=== PATIENT | female | born 1930 | race Hispanic/Latino ===

== ENCOUNTER 2017-02-21 10:45 | Emergency (ER) | payer MEDICARE, OTHER ==
[2017-02-21 10:46] VITALS: BMI 30.9
[2017-02-21 11:23] VITALS: RESP 18; TEMP 98.2
--- NOTE | 2017-02-21 11:49 | ED PDOC ---
Arrival/HPI - General Chief Complaint: Female Genitourinary Time Seen by Provider: 02/21/17 10:47 Historian: Patient - History of Present Illness Narrative History of Present Illness (Text): 02/21/17 11:35 A 86 year old female, whose past medical history includes COPD and multiple UTI' s, presents to the emergency department complaining of chills and blood in the urine. Patient reports last night she developed urinary frequency and chills. This morning upon waking she noticed blood in her urine. She denies any fever, abdominal pain, nausea, vomiting, diarrhea, or any other complaints at this time. Patient mentions in the past went she has had similar symptoms she was diagnosed with UTI. PMD: Dr. Mesa Time/Duration: Other (10-18 hours) Symptom Onset: Sudden Symptom Course: Unchanged Quality: Other Activities at Onset: Rest Context: Home Past Medical History - Provider Review Nursing Documentation Reviewed: Yes - Infectious Disease Hx of Infectious Diseases: None - Tetanus Immunization Tetanus Immunization: Unknown - Reproductive Menopause: Yes - Cardiac Hx Cardiac Disorders: Yes Hx Hypertension: Yes - Pulmonary Hx Respiratory Disorders: Yes Hx Chronic Obstructive Pulmonary Disease (COPD): Yes - Neurological Hx Neurological Disorder: No - HEENT Hx HEENT Disorder: Yes (glasses) Hx Deafness: (hearing loss) - Renal Hx Renal Disorder: No - Endocrine/Metabolic Hx Endocrine Disorders: No Hx Diabetes Mellitus Type 2: (borderline) - Hematological/Oncological Hx Blood Disorders: Yes Hx Shingles: Yes - Integumentary Hx Dermatological Disorder: Yes Other/Comment: 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 - Musculoskeletal/Rheumatological Hx Musculoskeletal Disorders: Yes Hx Arthritis: Yes - Gastrointestinal Hx Gastrointestinal Disorders: No - Genitourinary/Gynecological Hx Genitourinary Disorders: No - Psychiatric Hx Psychophysiologic Disorder: No Hx Substance Use: No - Past Surgical History Past Surgical History: Unable to Obtain - Surgical History Hx Thyroidectomy: Yes Hx Tonsillectomy: Yes - Anesthesia Hx Anesthesia: Yes Hx Anesthesia Reactions: No Hx Malignant Hyperthermia: No - Suicidal Assessment Feels Threatened In Home Enviroment: No Family/Social History - Physician Review Nursing Documentation Reviewed: Yes Family/Social History: Unknown Family HX Smoking Status: Former Smoker Hx Alcohol Use: Yes Hx Substance Use: No Hx Substance Use Treatment: No Allergies/Home Meds Allergies/Adverse Reactions: Allergies ampicillin Allergy (Verified 05/02/16 08:17) RASH esomeprazole magnesium [From Nexium] Allergy (Verified 05/02/16 08:17) RASH Home Medications: Home Meds Medication Instructions Recorded Confirmed Albuterol Sulfate [Proair Hfa] 2 puff IH BID 04/04/13 08/22/16 Aspirin [Ecotrin] 81 mg PO DAILY 04/04/13 08/22/16 Ezetimibe [Zetia] 10 mg PO DAILY 04/04/13 08/22/16 Levothyroxine Sodium 0.1 mg PO DAILY 04/04/13 08/22/16 [Levothyroxine] Omeprazole 20 mg PO DAILY 04/04/13 08/22/16 Irbesartan [Avapro] 300 mg PO DAILY 02/18/16 08/22/16 Metoprolol Succinate XL [Toprol XL] 50 mg PO DAILY 02/18/16 08/22/16 Fluticasone Propionate [Flovent 0.22 mg IH BID 08/22/16 08/22/16 Hfa] Tiotropium [Spiriva] 18 mcg IH DAILY 08/22/16 08/22/16 Review of Systems - Physician Review All systems were reviewed & negative as marked: Yes - Review of Systems Constitutional: Other (chills). absent: Fevers Gastrointestinal: absent: Abdominal Pain, Diarrhea, Nausea, Vomiting Genitourinary Female: Frequency, Hematuria Physical Exam Vital Signs Reviewed: Yes Vital Signs Temp Pulse Resp BP Pulse Ox 02/21/17 14:28 68 18 182/73 H 98 02/21/17 12:49 64 18 182/76 H 98 02/21/17 11:17 98.2 F 66 18 187/79 H 97 Temperature: Afebrile Blood Pressure: Hypertensive Pulse: Regular Respiratory Rate: Normal Appearance: Positive for: Well-Appearing, Non-Toxic, Comfortable Pain Distress: None Mental Status: Positive for: Alert and Oriented X 3 - Systems Exam Head: Present: Atraumatic, Normocephalic Pupils: Present: PERRL Extroacular Muscles: Present: EOMI Conjunctiva: Present: Normal Mouth: Present: Moist Mucous Membranes Neck: Present: Normal Range of Motion Respiratory/Chest: Present: Clear to Auscultation, Good Air Exchange. No: Respiratory Distress, Accessory Muscle Use Cardiovascular: Present: Regular Rate and Rhythm, Normal S1, S2. No: Murmurs Abdomen: Present: Normal Bowel Sounds. No: Tenderness, Distention, Peritoneal Signs Back: Present: Normal Inspection Upper Extremity: Present: Normal Inspection. No: Cyanosis, Edema Lower Extremity: Present: Normal Inspection. No: Edema Neurological: Present: GCS=15, CN II-XII Intact, Speech Normal Skin: Present: Warm, Dry, Normal Color. No: Rashes Psychiatric: Present: Alert, Oriented x 3, Normal Insight, Normal Concentration Medical Decision Making ED Course and Treatment: 02/21/17 11:35 Impression: A 86 year old female with hematuria. Differential Diagnosis include but are not limited to: UTI Plan: -- Labs -- Urinalysis -- Reassess and disposition Prior Visits: Notes and results from previous visits were reviewed. The patient last presented to the emergency department on 08/22/16 for evlaution of diarrhea. Progress Notes: 02/21/17 14:12 Abdomen/Pelvis CT: Creator : Demetrius Rizzo MD COMPARISON: 08/31/2016 FINDINGS: LOWER THORAX: Nodular scarring is seen at the right lung base. This is unchanged. There is a moderate size hiatal hernia LIVER: Unremarkable. No gross lesion or ductal dilatation. GALLBLADDER AND BILE DUCTS: There is a stone in the gallbladder PANCREAS: Unremarkable. No gross lesion or ductal dilatation. SPLEEN: Unremarkable. ADRENALS: Unremarkable. No mass. KIDNEYS AND URETERS: Unremarkable. No hydronephrosis. No solid mass. VASCULATURE: Unremarkable. No aortic aneurysm. BOWEL: Unremarkable. No obstruction. No gross mural thickening. There is diverticulosis of the sigmoid colon without diverticulitis APPENDIX: Unremarkable. Normal appendix. PERITONEUM: Unremarkable. No free fluid. No free air. LYMPH NODES: Unremarkable. No enlarged lymph nodes. BLADDER: Unremarkable. REPRODUCTIVE: Unremarkable. BONES: No acute fracture. OTHER FINDINGS: None. IMPRESSION: No acute findings 02/21/17 14:[address] patel, requests ct. ct neg. case discussed with dr mesa. stable for outpt managment. no e/o of sepsis stone. dr patel requests iv antibiotics. requests pt to follow up in his office for cysto. return precautions advsied. updated pt, states feels well to go home. abd soft no ttp. 02/21/17 15:47 - Lab Interpretations Lab Results: 02/21/17 11:50 02/21/17 11:50 Lab Results 02/21/17 11:50: WBC 9.4 D, RBC 4.44, Hgb 12.3, Hct 37.0, MCV 83.3, MCH 27.7, MCHC 33.2, RDW 14.2, Plt Count 266, MPV 9.8, Gran % 79.7 H, Lymph % (Auto) 11.6 L, [place] % (Auto) 6.9 H, Eos % (Auto) 1.5, Baso % (Auto) 0.3, Gran # 7.51 H, Lymph # 1.1 L, [place] # 0.7 H, Eos # 0.1, Baso # 0.03, PT 10.7, INR 0.99, APTT 25.8, Sodium 131 L, Potassium 4.5, Chloride 95 L, Carbon Dioxide 27, Anion Gap 14, BUN 26 H, Creatinine 1.1, Est GFR ( Amer) 57, Est GFR (Non-Af Amer) 47, Random Glucose 112 H, Calcium 8.9, Total Bilirubin 0.7, AST 20, ALT 32, Alkaline Phosphatase 63, Total Protein 7.1, Albumin 3.8, Globulin 3.4, Albumin/ Globulin Ratio 1.1, Lipase 131, Urine Color Red, Urine Appearance Bloody, Urine pH 6.5, Ur Specific [place] 1.020, Urine Protein >=300 H, Urine Glucose (UA) Negative, Urine Ketones Negative, Urine Blood Large H, Urine Nitrate Negative, Urine Bilirubin Negative, Urine Urobilinogen 0.2, Ur Leukocyte Esterase Trace H , Urine RBC Tntc, Urine WBC 0 - 2, Ur Epithelial Cells 0 - 2, Urine Bacteria Mod I have reviewed the lab results: Yes - RAD Interpretation Radiology Orders: 02/21/17 12:56 ABD & PELVIS W/O PO OR IV CONT [CT] Stat - Medication Orders Current Medication Orders: Discontinued Medications Ciprofloxacin (Cipro 400mg/200ml Dsw) 200 mls @ 133.3 mls/hr IVPB STAT STA PRN Reason: Protocol Stop: 02/21/17 14:27 Last Admin: 02/21/17 13:15 Dose: 133.3 MLS/HR eMAR Start Stop Document 02/21/17 13:15 GMD (Rec: 02/21/17 13:16 GMD [facility] [id number] Intravenous Solution Start Date 02/21/17 Start Time 13:15 End Date 02/21/17 End time 14:46 Total Infusion Time 91 - Scribe Statement The provider has reviewed the documentation as recorded by the Heather España Provider Heather Attestation: All medical record entries made by the Scribailyn were at my direction and personally dictated by me. I have reviewed the chart and agree that the record accurately reflects my personal performance of the history, physical exam, medical decision making, and the department course for this patient. I have also personally directed, reviewed, and agree with the discharge instructions and disposition. Disposition/Present on Arrival - Present on Arrival Any Indicators Present on Arrival: No History of DVT/PE: No History of Uncontrolled Diabetes: No Urinary Catheter: No History of Decub. Ulcer: No History Surgical Site Infection Following: None - Disposition Have Diagnosis and Disposition been Completed?: Yes Diagnosis: Hematuria Disposition: HOME/ ROUTINE Disposition Time: 14:47 Condition: STABLE Discharge Instructions (ExitCare): Acute Hematuria (ED), Urinary Tract Infection in Women (ED) Additional Instructions: please follow up with dr patel and dr mesa. return to er with worsening symptoms or concerns. Prescriptions: Ciprofloxacin [Cipro] 500 mg PO BID #14 tab
[2017-02-21 11:58] LABS: ADD MANUAL DIFF? NO
[2017-02-21 12:08] LABS: BASO # 0.03 K/mm3 (0.0-2.0); BASO % 0.3 % (0.0-3.0); EOS # 0.1 (0.0-0.7); EOS % 1.5 % (1.5-5.0); GRAN # 7.51 (1.4-6.5); GRAN % 79.7 % (50.0-68.0); LYMPH # 1.1 (1.2-3.4); LYMPH % 11.6 % (22.0-35.0); MEAN CELL VOLUME 83.3 fL (80.0-105.0); MEAN CORPUSCULAR HEMOGLOBIN 27.7 pg (25.0-35.0); MEAN CORPUSCULAR HGB CONC 33.2 g/dl (31.0-37.0); MEAN PLATELET VOLUME 9.8 fl (7.0-11.0); MONO # 0.7 (0.1-0.6); MONO % 6.9 % (1.0-6.0); PLATELET COUNT 266 10^3/uL (120.0-450.0); RED CELL DISTRIBUTION WIDTH 14.2 % (11.5-14.5); WHITE BLOOD COUNT 9.4 10^3/ul (4.5-11.0)
[2017-02-21 12:16] LABS: ALB/GLOB RATIO 1.1 (1.1-1.8); BILIRUBIN,TOTAL 0.7 mg/dL (0.2-1.3); CALCIUM 8.9 mg/dL (8.4-10.5); POTASSIUM 4.5 mmol/L (3.6-5.0); TOTAL PROTEIN 7.1 g/dL (5.8-8.3)
[2017-02-21 12:20] LABS: INR 0.99 (0.93-1.08); PARTIAL THROMBOPLASTIN TIME 25.8 Seconds (23.7-30.8)
[2017-02-21 12:24] LABS: PH,URINE 6.5 (4.7-8.0); URINE BILIRUBIN NEGATIVE (NEGATIVE); URINE BLOOD LARGE (NEGATIVE); URINE GLUCOSE (UA) NEGATIVE (NEGATIVE); URINE KETONE NEGATIVE (NEGATIVE); URINE LEUKOCYTE ESTERASE TRACE Leu/uL (NEGATIVE); URINE PROTEIN >=300 mg/dL (<30 mg/dL); URINE UROBILINOGEN 0.2 E.U./dL (<1 E.U./dL)
[2017-02-21 12:28] LABS: URINE APPEARANCE BLOODY (CLEAR); URINE COLOR RED (YELLOW)
[2017-02-21 12:40] LABS: URINE RBC TNTC /hpf (0-2)
[2017-02-21 12:42] LABS: URINE WBC 0 - 2 /hpf (0-6)
[2017-02-21 12:43] LABS: URINE BACTERIA MOD (NEG); URINE EPITHELIAL CELLS 0 - 2 /hpf (0-5)
[2017-02-21 12:50] VITALS: O2SAT 98
[2017-02-21] MEDS ORDERED: Ciprofloxacin 400mg/200ml D5W 200 ML IVPB STA (12:57)
[2017-02-21 14:29] VITALS: BP 182/73; PULSE 68
--- NOTE | 2017-02-21 14:43 | CT ---
PROCEDURE: CT Abdomen and Pelvis without intravenous contrast HISTORY: abd pain, flank pain COMPARISON: 08/31/2016 TECHNIQUE: Without contrast. Contrast Dose: Radiation dose: Total exam DLP = 819 mGy-cm. This CT exam was performed using one or more of the following dose reduction techniques: Automated exposure control, adjustment of the mA and/or kV according to patient size, and/or use of iterative reconstruction technique. FINDINGS: LOWER THORAX: Nodular scarring is seen at the right lung base. This is unchanged. There is a moderate size hiatal hernia LIVER: Unremarkable. No gross lesion or ductal dilatation. GALLBLADDER AND BILE DUCTS: There is a stone in the gallbladder PANCREAS: Unremarkable. No gross lesion or ductal dilatation. SPLEEN: Unremarkable. ADRENALS: Unremarkable. No mass. KIDNEYS AND URETERS: Unremarkable. No hydronephrosis. No solid mass. VASCULATURE: Unremarkable. No aortic aneurysm. BOWEL: Unremarkable. No obstruction. No gross mural thickening. There is diverticulosis of the sigmoid colon without diverticulitis APPENDIX: Unremarkable. Normal appendix. PERITONEUM: Unremarkable. No free fluid. No free air. LYMPH NODES: Unremarkable. No enlarged lymph nodes. BLADDER: Unremarkable. REPRODUCTIVE: Unremarkable. BONES: No acute fracture. OTHER FINDINGS: None. IMPRESSION: No acute findings
== END 2017-02-21 15:34 | disposition home or self-care (01) ==
LOC: ED 10:45
DX: R31.9 Hematuria, unspecified (principal); I10 Essential (primary) hypertension; Z87.891 Personal history of nicotine dependence
CPT/HCPCS: 74176; 80053; 81001; 83690; 85025; 85610; 85730; 87086; 96365; 96366; 99284; J0744

== ENCOUNTER 2018-05-09 13:56 | Emergency (ER) | payer MEDICARE, OTHER ==
[2018-05-09 13:57] VITALS: BMI 30.9
[2018-05-09 14:26] VITALS: RESP 19
--- NOTE | 2018-05-09 14:30 | ED PDOC ---
Arrival/HPI - General Historian: Patient - History of Present Illness Time/Duration: 4-6 hours Symptom Onset: Sudden Symptom Course: Unchanged Quality: Pressure <Ross Burciaga - Last Filed: 05/09/18 15:21> <Eliel Vaughan - Last Filed: 05/09/18 17:43> - General Chief Complaint: Female Genitourinary Time Seen by Provider: 05/09/18 13:57 - History of Present Illness Narrative History of Present Illness (Text): 05/09/18 14:24 Pt is an 87 yo F with PMH of CAD, hypothyroidism, asthma, recurrent UTI, and CVA presents to ED due to bladder pressure this AM. Patient states that she felt pressure in her bladder several times this morning. She was concerned about a possible UTI because past UTI's felt similar. Patient states that she has had an indwelling rios catheter since December due to urinary incontinence 2/2 CVA. She states that the catheter is changed monthly. Patient states the most recent UTI was a few months ago and and required IV antibiotics with subsequent PO antibiotics that were discontinued recently. The catheter was last changed 3 days ago. Of note, patient daily urine output is 700-900 cc, however today her UO was 1350 over 12 hrs. Family at bedside states she has not been acutely confused, which was the case with the last UTI. Patient denies CP, SOB, n/v/d, abdominal pain, fever, chills, RIZO, dizziness, dysuria, hematuria, or any other complaints. PMD: Moshe (Ross Burciaga) Past Medical History - Provider Review Nursing Documentation Reviewed: Yes - Infectious Disease Hx of Infectious Diseases: None - Tetanus Immunization Tetanus Immunization: Unknown - Reproductive Menopause: Yes - Cardiac Hx Cardiac Disorders: Yes Hx Hypertension: Yes - Pulmonary Hx Respiratory Disorders: Yes Hx Chronic Obstructive Pulmonary Disease (COPD): Yes - Neurological Hx Neurological Disorder: No - HEENT Hx HEENT Disorder: Yes (glasses) Hx Deafness: (hearing loss) - Renal Hx Renal Disorder: No - Endocrine/Metabolic Hx Endocrine Disorders: No Hx Diabetes Mellitus Type 2: (borderline) - Hematological/Oncological Hx Blood Disorders: Yes Hx Shingles: Yes - Integumentary Hx Dermatological Disorder: Yes Other/Comment: 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 - Musculoskeletal/Rheumatological Hx Musculoskeletal Disorders: Yes Hx Arthritis: Yes - Gastrointestinal Hx Gastrointestinal Disorders: No - Genitourinary/Gynecological Hx Genitourinary Disorders: No - Psychiatric Hx Psychophysiologic Disorder: No Hx Substance Use: No - Past Surgical History Past Surgical History: Unable to Obtain - Surgical History Hx Thyroidectomy: Yes Hx Tonsillectomy: Yes - Anesthesia Hx Anesthesia: Yes Hx Anesthesia Reactions: No Hx Malignant Hyperthermia: No - Suicidal Assessment Feels Threatened In Home Enviroment: No <Ross Burciaga - Last Filed: 05/09/18 15:21> - Travel History Have you recently traveled outside [place] w/in the past 3 mons?: No - Past History Past History: No Previous - Reproductive Currently : No <Eliel Vaughan - Last Filed: 05/09/18 17:43> Family/Social History - Physician Review Nursing Documentation Reviewed: Yes Family/Social History: No Known Family HX Smoking Status: Former Smoker Hx Alcohol Use: Yes Hx Substance Use: No Hx Substance Use Treatment: No <Ross Burciaga - Last Filed: 05/09/18 15:21> Allergies/Home Meds <Ross Burciaga - Last Filed: 05/09/18 15:21> <Eliel Vaughan - Last Filed: 05/09/18 17:43> Allergies/Adverse Reactions: Allergies ampicillin Allergy (Verified 05/02/16 08:17) RASH esomeprazole magnesium [From Nexium] Allergy (Verified 05/02/16 08:17) RASH Home Medications: Home Meds Medication Instructions Recorded Confirmed Irbesartan [Avapro] 300 mg PO DAILY 02/18/16 05/09/18 Metoprolol Succinate XL [Toprol XL] 50 mg PO DAILY 02/18/16 05/09/18 Fluticasone Propionate [Flovent 0.22 mg IH BID 08/22/16 05/09/18 Hfa] Tiotropium [Spiriva] 18 mcg IH DAILY 08/22/16 05/09/18 Apixaban [Eliquis] 2.5 mg PO BID 05/09/18 05/09/18 Levothyroxine [Synthroid] 25 mcg PO DAILY 05/09/18 05/09/18 Lisinopril [Zestril] 10 mg PO DAILY 05/09/18 05/09/18 Omeprazole [Omeprazole] 40 mg PO DAILY 05/09/18 05/09/18 Pravastatin Sodium [Pravachol] 40 mg PO DAILY 05/09/18 05/09/18 amLODIPine [Norvasc] 5 mg PO DAILY 05/09/18 05/09/18 Review of Systems - Review of Systems Constitutional: Normal Eyes: Normal ENT: Normal Respiratory: Normal Cardiovascular: Normal Gastrointestinal: Normal Genitourinary Female: Other (suprapubic pressure) Musculoskeletal: Normal Skin: Normal Neurological: Normal Endocrine: Normal Hemo/Lymphatic: Normal Psychiatric: Normal <PatricaRoss Last Filed: 05/09/18 15:21> Physical Exam Temperature: Afebrile Blood Pressure: Normal Pulse: Regular Respiratory Rate: Normal Appearance: Positive for: Non-Toxic Pain Distress: None Mental Status: Positive for: Alert and Oriented X 3 - Systems Exam Head: Present: Atraumatic, Normocephalic Pupils: Present: PERRL Extroacular Muscles: Present: EOMI Conjunctiva: Present: Normal Mouth: Present: Moist Mucous Membranes Neck: Present: Normal Range of Motion Respiratory/Chest: Present: Clear to Auscultation, Good Air Exchange. No: Respiratory Distress, Accessory Muscle Use Cardiovascular: Present: Regular Rate and Rhythm, Normal S1, S2. No: Murmurs Abdomen: Present: Other (suprapubic pressure). No: Tenderness, Distention, Peritoneal Signs Genitourinary/Pelvic Exam: Present: Other (Urine per rios is light yellow, no signs of pyuria, hematuria) Back: Present: Normal Inspection Upper Extremity: Present: Normal Inspection. No: Cyanosis, Edema Lower Extremity: Present: Normal Inspection. No: Edema Neurological: Present: GCS=15, CN II-XII Intact, Speech Normal Skin: Present: Warm, Dry, Normal Color. No: Rashes Psychiatric: Present: Alert, Oriented x 3, Normal Insight, Normal Concentration <Ross Burciaga Last Filed: 05/09/18 15:21> Vital Signs Temp Pulse Resp BP Pulse Ox 05/09/18 17:15 98 F 05/09/18 15:19 64 19 132/75 98 05/09/18 14:02 97.7 F 67 19 137/98 H 99 Medical Decision Making <PatricaRoss Last Filed: 05/09/18 15:21> Re-evaluation Time: 16:30 Reassessment Condition: Improved - Lab Interpretations I have reviewed the lab results: Yes Interpretation: Abnormal lab values (+ abnl UA) <Eliel Vaughan - Last Filed: 05/09/18 17:43> ED Course and Treatment: 05/09/18 14:31 87 yo F presents to ED with suprapubic pressure concerning for UTI vs bladder spasms. Plan: - CBC, CMP - Coags - VBG shock - UA - Reassess and disposition 05/09/18 15:17 Dr. Mesa made aware of patient status, will follow up when work up is complete. 05/09/18 15:[address] Modi, who will send sensitivities from last urine culture. He recommends rios irrigation. (Ross Burciaga) Patient Seen With Resident: In agreement with resident note which contains more details about the patient. Patient was seen and evaluated with resident. Came up with plan and treatment together I performed the hx and physical exam of the patient and discussed their mgt with the RESIDENT. I reviewed the RESIDENT's NOTE and agree with the assessment and plan of care. pt is well appearing pt is not in any distress pt is comfortable vital signs WNL will recommend pt for IV abx and continue monitor [address] Mesa on multiple occasions, is aware of emergency department mgt/txt/plan; agrees with ABX, will continue to monitor patient as she is recommended for outpt txt/follow-up - Dr Mesa agrees 1700 pt/family are made aware of pt's medical results pt is encouraged fluids pt is encouraged outpt follow up with Dr Mesa/Dr Modi pt will be discharged home (Eliel Vaughan) - Lab Interpretations Lab Results: 05/09/18 14:50 05/09/18 14:50 Lab Results 05/09/18 15:15: Urine Color Yellow, Urine Appearance Cloudy, Urine pH 6.0, Ur Specific [place] 1.020, Urine Protein 30 H, Urine Glucose (UA) Negative, Urine Ketones Negative, Urine Blood Large H, Urine Nitrate Negative, Urine Bilirubin Negative, Urine Urobilinogen 0.2, Ur Leukocyte Esterase Large H, Urine RBC 10 - 15, Urine WBC 20 - 25, Ur Epithelial Cells 10 - 12, Urine Bacteria Mod 05/09/18 14:50: pO2 41, VBG pH 7.36, VBG pCO2 47.0, VBG HCO3 26.6, VBG Total CO2 28.0, VBG O2 Sat (Calc) 78.5 H, VBG Base Excess 0.6, VBG Potassium 4.2, Sodium 136.0, Chloride 103.0, Glucose 107 H, Lactate 1.0, FiO2 21.0, Venous Blood Potassium 4.2 05/09/18 14:50: PT 16.7 H, INR 1.45 H, APTT 27.9 05/09/18 14:50: Sodium 139, Chloride 101, Potassium 4.2, Carbon Dioxide 27, Anion Gap 16, BUN 25 H, Creatinine 1.0, Est GFR ( Amer) > 60, Est GFR ( Non-Af Amer) 52, Random Glucose 107, Calcium 9.5, Total Bilirubin 0.5, AST 27, ALT 35, Alkaline Phosphatase 56, Total Protein 6.8, Albumin 3.7, Globulin 3.1, Albumin/Globulin Ratio 1.2 05/09/18 14:50: WBC 8.0 D, RBC 3.94, Hgb 11.1 L, Hct 33.7 L, MCV 85.5, MCH 28.2 , MCHC 32.9, RDW 15.4 H, Plt Count 320, MPV 10.0, Gran % 79.6 H, Lymph % (Auto) 11.8 L, [place] % (Auto) 6.0, Eos % (Auto) 2.3, Baso % (Auto) 0.3, Gran # 6.33, Lymph # (Auto) 0.9 L, [place] # (Auto) 0.5, Eos # (Auto) 0.2, Baso # (Auto) 0.02 - Medication Orders Current Medication Orders: Discontinued Medications Levofloxacin/Dextrose (Levaquin 750mg) 750 mg in 150 mls @ 100 mls/hr IVPB STAT STA PRN Reason: Protocol Stop: 05/09/18 16:30 Last Admin: 05/09/18 15:59 Dose: 100 mls/hr Disposition/Present on Arrival - Present on Arrival History of DVT/PE: No History of Uncontrolled Diabetes: No Urinary Catheter: No History of Decub. Ulcer: No History Surgical Site Infection Following: None <Ross Burciaga - Last Filed: 05/09/18 15:21> - Present on Arrival Any Indicators Present on Arrival: No - Disposition Have Diagnosis and Disposition been Completed?: Yes Disposition Time: 17:30 Patient Plan: Discharge <Eliel Vaughan - Last Filed: 05/09/18 17:43> - Disposition Diagnosis: UTI (urinary tract infection), General medical exam Disposition: HOME/ ROUTINE Patient Problems: Current Active Problems Problem Status Onset UTI (urinary tract infection) Acute General medical exam Acute Condition: STABLE Discharge Instructions (ExitCare): Urinary Tract Infection, Adult (DC) Print Language: MONEG[place] Additional Instructions: 1. Call Dr. Mesa on Friday to get urine culture results 2. Take antibiotics as prescribed 3. Resume home medications; maintain your hydration 4. Return to ED if symptoms worsen ABELARDO WADSWORTH, thank you for letting us take care of you today. Your provider was Eliel Vaughan MD and you were treated for UTI. The emergency medical care you received today was directed at your acute symptoms. If you were prescribed any medication, please fill it and take as directed. It may take several days for your symptoms to resolve. Return to the Emergency Department if your symptoms worsen, do not improve, or if you have any other problems. Please contact your doctor or call one of the physicians/clinics you have been referred to that are listed on the Patient Visit Information form that is included in your discharge packet. Bring any paperwork you were given at discharge with you along with any medications you are taking to your follow up visit. Our treatment cannot replace ongoing medical care by a primary care provider outside of the emergency department. Thank you for allowing the [facility] team to be part of your care today. Prescriptions: Levofloxacin [Levaquin] 750 mg PO DAILY #5 tablet Referrals: Nasreen Mesa MD [Staff Provider] - Follow up with primary Rishi Modi MD [Staff Provider] - Follow up with primary Forms: Smart GPS Backpack (Macedonian)
[2018-05-09 14:59] LABS: GRAN % 79.6 % (50.0-68.0); HEMOGLOBIN 11.1 g/dL (12.0-16.0); MEAN CELL VOLUME 85.5 fl (80.0-105.0); MEAN CORPUSCULAR HEMOGLOBIN 28.2 pg (25.0-35.0); MEAN CORPUSCULAR HGB CONC 32.9 g/dl (31.0-37.0); RBC 3.94 10^6/uL (3.5-6.1); RED CELL DISTRIBUTION WIDTH 15.4 % (11.5-14.5)
[2018-05-09 15:00] LABS: BASO # 0.02 K/mm3 (0.0-2.0); BASO % 0.3 % (0.0-3.0); EOS # 0.2 (0.0-0.7); EOS % 2.3 % (1.5-5.0); GRAN # 6.33 (1.4-6.5); LYMPH # 0.9 (1.2-3.4); LYMPH % 11.8 % (22.0-35.0); MONO # 0.5 (0.1-0.6)
[2018-05-09] MEDS ORDERED: levoFLOXacin 750 mg in D5W 750 MG/150 ML BAG IVPB STA (15:01)
[2018-05-09 15:08] LABS: ALB/GLOB RATIO 1.2 (1.1-1.8); ALBUMIN 3.7 g/dL (3.0-4.8); ALT/SGPT 35 U/L (7-56); AST/SGOT 27 U/L (14-36); BLOOD UREA NITROGEN 25 mg/dL (7-21); CALCIUM 9.5 mg/dL (8.4-10.5); GFR AFRICAN-AMERICAN > 60; GFR NON-AFRICAN AMERICAN 52
[2018-05-09 15:11] LABS: INR 1.45 (0.93-1.08); PROTHROMBIN TIME 16.7 SECONDS (9.4-12.5)
[2018-05-09 15:12] LABS: PARTIAL THROMBOPLASTIN TIME 27.9 Seconds (25.1-36.5)
[2018-05-09 15:13] LABS: VENOUS BLOOD GAS BASE EXCESS 0.6 mmol/L (0.0-2.0); VENOUS BLOOD GAS PO2 41 mm/Hg (30-55); VENOUS BLOOD PH 7.36 (7.32-7.43)
[2018-05-09 15:29] LABS: URINE BILIRUBIN NEGATIVE (NEGATIVE); URINE BLOOD LARGE (NEGATIVE); URINE GLUCOSE (UA) NEGATIVE (NEGATIVE); URINE LEUKOCYTE ESTERASE LARGE Leu/uL (NEGATIVE); URINE PROTEIN 30 mg/dL (<30 mg/dL); URINE UROBILINOGEN 0.2 E.U./dL (<1 E.U./dL)
[2018-05-09 15:30] LABS: URINE APPEARANCE CLOUDY (CLEAR); URINE COLOR YELLOW (YELLOW)
[2018-05-09 15:42] LABS: URINE BACTERIA MOD (NEG); URINE WBC 20 - 25 /hpf (0-6)
[2018-05-09 17:21] VITALS: TEMP 98
[2018-05-09 19:26] VITALS: BP 124/52; PULSE 85; O2SAT 99
== END 2018-05-09 19:27 | disposition home or self-care (01) ==
LOC: ED 13:56
DX: Z00.00 Encounter for general adult medical examination without abnormal findings (principal); N39.0 Urinary tract infection, site not specified; I10 Essential (primary) hypertension; Z87.891 Personal history of nicotine dependence

== ENCOUNTER 2018-05-31 12:56 | Inpatient (IN) | payer MEDICARE, OTHER ==
[2018-05-31 13:16] VITALS: BMI 26.5
--- NOTE | 2018-05-31 14:08 | RAD ---
Date of service: 05/31/2018 HISTORY: pes COMPARISON: 12/11/2013 FINDINGS: LUNGS: No active pulmonary disease. PLEURA: No significant pleural effusion identified, no pneumothorax apparent. CARDIOVASCULAR: Normal. OSSEOUS STRUCTURES: No significant abnormalities. VISUALIZED UPPER ABDOMEN: Normal. OTHER FINDINGS: None. IMPRESSION: No active disease.
[2018-05-31 14:30] LABS: URINE APPEARANCE SL CLOUDY (CLEAR); URINE BILIRUBIN NEGATIVE (NEGATIVE); URINE BLOOD TRACE-INTACT (NEGATIVE); URINE COLOR YELLOW (YELLOW); URINE GLUCOSE (UA) NEGATIVE (NEGATIVE); URINE LEUKOCYTE ESTERASE MODERATE Leu/uL (NEGATIVE); URINE PROTEIN NEGATIVE mg/dL (<30 mg/dL); URINE UROBILINOGEN 0.2 E.U./dL (<1 E.U./dL)
[2018-05-31 14:37] LABS: URINE WBC TNTC /hpf (0-6)
[2018-05-31 14:38] LABS: URINE BACTERIA FEW (NEG); URINE EPITHELIAL CELLS 0 - 2 /hpf (0-5); URINE RBC 0 - 2 /hpf (0-2)
[2018-05-31 15:31] LABS: BASO # 0.02 K/mm3 (0.0-2.0); BASO % 0.3 % (0.0-3.0); EOS # 0.2 (0.0-0.7); EOS % 2.9 % (1.5-5.0); GRAN # 4.19 (1.4-6.5); GRAN % 72.6 % (50.0-68.0); HEMOGLOBIN 11.3 g/dL (12.0-16.0); LYMPH % 17.3 % (22.0-35.0); MEAN CELL VOLUME 87.4 fl (80.0-105.0); MEAN CORPUSCULAR HEMOGLOBIN 28.5 pg (25.0-35.0); MEAN CORPUSCULAR HGB CONC 32.7 g/dl (31.0-37.0); MEAN PLATELET VOLUME 10.2 fl (7.0-11.0); MONO # 0.4 (0.1-0.6); MONO % 6.9 % (1.0-6.0); RBC 3.96 10^6/uL (3.5-6.1); RED CELL DISTRIBUTION WIDTH 15.5 % (11.5-14.5); WHITE BLOOD COUNT 5.8 10^3/ul (4.5-11.0)
[2018-05-31 15:43] LABS: ACETAMINOPHEN < 10.0 ug/ml (10.0-20.0); SALICYLATE < 1 mg/dL (2.0-20.0)
--- NOTE | 2018-05-31 15:43 | ED PDOC ---
Arrival/HPI - General Chief Complaint: Anxiety Time Seen by Provider: 05/31/18 13:14 Historian: Patient, Family - History of Present Illness Narrative History of Present Illness (Text): 05/31/18 15:26 87-year-old female presents today brought in by her daughter for psychiatric admission. Patient states he has not been sleeping well at home. She has been very tearful and states she's been feeling very anxious. Patient states this happens to her whenever she has difficulty with sleeping. Patient states she gets aggravated because she is not sleeping. Patient states she is crying a lot. Patient states that she used to be beautiful and she is no longer beautiful. Family states that they spoke with Dr. Castaneda in that he was going to admit the patient for medication adjustment. Patient denies chest pain or shortness of breath. Denies abdominal pain. Denies fevers or chills. No other complaints. 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) - HEENT Hx HEENT Disorder: Yes (glasses) Hx Deafness: (hearing loss) - Renal Hx Renal Disorder: No - Endocrine/Metabolic Hx Endocrine Disorders: No Hx Diabetes Mellitus Type 2: (borderline) - Hematological/Oncological Hx Blood Disorders: Yes Hx Shingles: Yes - Integumentary Hx Dermatological Disorder: Yes Other/Comment: 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 - Musculoskeletal/Rheumatological Hx Musculoskeletal Disorders: Yes Hx Arthritis: Yes - Gastrointestinal Hx Gastrointestinal Disorders: No - Genitourinary/Gynecological Other/Comment: +urinary catheter after stroke - Psychiatric Hx Psychophysiologic Disorder: No Hx Substance Use: No - Past Surgical History Past Surgical History: Unable to Obtain - Surgical History Hx Thyroidectomy: Yes Hx Tonsillectomy: Yes - Anesthesia Hx Anesthesia: Yes Hx Anesthesia Reactions: No Hx Malignant Hyperthermia: No - Suicidal Assessment Feels Threatened In Home Enviroment: No Family/Social History - Physician Review Nursing Documentation Reviewed: Yes Family/Social History: Unknown Family HX Smoking Status: Former Smoker Hx Alcohol Use: Yes Hx Substance Use: No Hx Substance Use Treatment: No Allergies/Home Meds Allergies/Adverse Reactions: Allergies ampicillin Allergy (Verified 05/02/16 08:17) RASH esomeprazole magnesium [From Nexium] Allergy (Verified 05/02/16 08:17) RASH Home Medications: Home Meds Medication Instructions Recorded Confirmed Irbesartan [Avapro] 300 mg PO DAILY 02/18/16 05/31/18 Metoprolol Succinate XL [Toprol XL] 50 mg PO DAILY 02/18/16 05/31/18 Fluticasone Propionate [Flovent 0.22 mg IH BID 08/22/16 05/31/18 Hfa] Tiotropium [Spiriva] 18 mcg IH DAILY 08/22/16 05/31/18 Apixaban [Eliquis] 2.5 mg PO BID 05/09/18 05/31/18 Levothyroxine [Synthroid] 25 mcg PO DAILY 05/09/18 05/31/18 Lisinopril [Zestril] 10 mg PO DAILY 05/09/18 05/31/18 Omeprazole [Omeprazole] 40 mg PO DAILY 05/09/18 05/31/18 Pravastatin Sodium [Pravachol] 40 mg PO DAILY 05/09/18 05/31/18 amLODIPine [Norvasc] 5 mg PO DAILY 05/09/18 05/31/18 Risperidone [Risperdal] 1 tab PO HS 05/31/18 05/31/18 clonazePAM [Klonopin] 1 tab PO 05/31/18 05/31/18 Review of Systems - Review of Systems Constitutional: absent: Fatigue, Fevers Respiratory: absent: SOB, Cough Cardiovascular: absent: Chest Pain, Palpitations Gastrointestinal: absent: Abdominal Pain, Nausea, Vomiting Genitourinary Female: absent: Dysuria, Frequency, Hematuria Musculoskeletal: absent: Arthralgias, Back Pain, Neck Pain Skin: absent: Rash, Pruritis Neurological: absent: Headache, Dizziness Psychiatric: Anxiety, Depression. absent: Suicidal Ideation Physical Exam Vital Signs Reviewed: Yes Vital Signs Temp Pulse Resp BP Pulse Ox 05/31/18 19:14 77 18 123/56 L 97 05/31/18 13:04 97.4 F L 76 18 122/68 98 Temperature: Afebrile Blood Pressure: Normal Pulse: Regular Respiratory Rate: Normal Appearance: Positive for: Well-Appearing, Non-Toxic, Comfortable Pain Distress: None Mental Status: Positive for: Alert and Oriented X 3 - Systems Exam Head: Present: Atraumatic Mouth: Present: Moist Mucous Membranes Respiratory/Chest: Present: Clear to Auscultation Cardiovascular: Present: Regular Rate and Rhythm Genitourinary/Pelvic Exam: Present: Other Upper Extremity: Present: Other (paralysis of left arm) Neurological: Present: GCS=15, Speech Normal Skin: Present: Warm, Dry, Normal Color Psychiatric: Present: Alert, Oriented x 3 Medical Decision Making ED Course and Treatment: 05/31/18 16:56 Patient is nontoxic well-appearing in no distress vital signs are stable. I discussed the case with Dr. Castaneda. Dr. Castaneda states he sent the patient in for admission for anxiety. CBC WNL CMP bun; 28/ cr 1.1 Tylenol WNL Salicylate WNL Alcohol level WNL Urine drug screen wnl UA; + leukocytes, pt with rios catheter : results discussed with dr. patel will hold off on abx; pending urine culture; he will evaluate patient tomorrow. cxr: wnl ekg: Normal sinus rhythm at 74 bpm, right bundle branch block, no ST elevations , QTc 455 pt is medically cleared for PES evaluation Patient was seen and evaluated by PES screener: Joanna pt to be admitted to psychiatric floor under Dr. Castaneda. Case was discussed with Dr. Mesa in depth. He will be on consult all aspects of this case were discussed the attending of record. Impression; anxiety admit to behavioral health floor. 05/31/18 19:30 case discussed again with dr. castaneda; he advised giving patient 0.25mg of ativan PO for anxiety. Reassessment Condition: Re-examined - Lab Interpretations Lab Results: 05/31/18 14:38 05/31/18 14:38 Lab Results 05/31/18 16:30: Urine Opiates Screen Negative, Urine Methadone Screen Negative, Ur Barbiturates Screen Negative, Ur Phencyclidine Scrn Negative, Ur Amphetamines Screen Negative, U Benzodiazepines Scrn Negative, U Oth Cocaine Metabols Negative, U Cannabinoids Screen Negative 05/31/18 14:38: Alcohol, Quantitative < 10 05/31/18 14:38: Salicylates < 1 L, Acetaminophen < 10.0 L 05/31/18 14:38: Sodium 143, Potassium 4.4, Chloride 106, Carbon Dioxide 27, Anion Gap 14, BUN 28 H, Creatinine 1.1, Est GFR ( Amer) 57, Est GFR (Non- Af Amer) 47, Random Glucose 130 H, Calcium 9.3, Total Bilirubin 0.3, AST 17, ALT 18, Alkaline Phosphatase 49, Total Protein 6.5, Albumin 3.6, Globulin 2.9, Albumin/Globulin Ratio 1.2 05/31/18 14:38: WBC 5.8 D, RBC 3.96, Hgb 11.3 L, Hct 34.6 L, MCV 87.4, MCH 28.5 , MCHC 32.7, RDW 15.5 H, Plt Count 266, MPV 10.2, Gran % 72.6 H, Lymph % (Auto) 17.3 L, [place] % (Auto) 6.9 H, Eos % (Auto) 2.9, Baso % (Auto) 0.3, Gran # 4.19, Lymph # (Auto) 1.0 L, [place] # (Auto) 0.4, Eos # (Auto) 0.2, Baso # (Auto) 0.02 05/31/18 14:00: Urine Color Yellow, Urine Appearance Sl cloudy, Urine pH 6.0, Ur Specific [place] 1.020, Urine Protein Negative, Urine Glucose (UA) Negative, Urine Ketones Negative, Urine Blood Trace-intact H, Urine Nitrate Negative, Urine Bilirubin Negative, Urine Urobilinogen 0.2, Ur Leukocyte Esterase Moderate H, Urine RBC 0 - 2, Urine WBC Tntc, Ur Epithelial Cells 0 - 2, Urine Bacteria Few, Urine Other Uyeast - RAD Interpretation Radiology Orders: 05/31/18 13:14 CHEST PORTABLE [RAD] Stat - Medication Orders Current Medication Orders: Discontinued Medications Lorazepam (Ativan) 0.25 mg PO ONCE ONE PRN Reason: Protocol Stop: 05/31/18 19:18 Last Admin: 05/31/18 19:40 Dose: 0.25 mg Disposition/Present on Arrival - Present on Arrival Any Indicators Present on Arrival: Yes History of DVT/PE: No History of Uncontrolled Diabetes: No Urinary Catheter: Yes History of Decub. Ulcer: No History Surgical Site Infection Following: None - Disposition Have Diagnosis and Disposition been Completed?: Yes Diagnosis: Anxiety Disposition: HOSPITALIZED Disposition Time: 17:11 Patient Plan: Admission Patient Problems: Current Active Problems Problem Status Onset Anxiety Acute Condition: FAIR
[2018-05-31 16:02] LABS: ALB/GLOB RATIO 1.2 (1.1-1.8); ALBUMIN 3.6 g/dL (3.0-4.8); CALCIUM 9.3 mg/dL (8.4-10.5)
--- NOTE | 2018-05-31 17:00 | CARD ---
APPROVED REPORT Date of service: 05/31/2018 EKG Measurement Heart [id number] <Conclusion> Normal sinus rhythm Right bundle branch block Anterior infarct, age undetermined Abnormal ECG
[2018-05-31 17:08] LABS: BENZODIAZEPINES, UR NEGATIVE (NEGATIVE)
[2018-05-31 17:20] LABS: BARBITURATES, UR NEGATIVE (NEGATIVE); OPIATES, UR NEGATIVE (NEGATIVE); PHENCYCLIDINE, UR NEGATIVE (NEGATIVE)
[2018-05-31 19:15] VITALS: O2SAT 97
--- NOTE | 2018-06-01 06:30 | PCM.BM ---
Treatment Plan Problems - Problems identified on initial assessmt Sleep Date Initiated: 05/31/18 Time Initiated: 21:00 Assessment reference: NA Status: Active Anxiety Date Initiated: 05/31/18 Time Initiated: 21:00 Assessment reference: NA Status: Active Treatment assets and liabiliti Patient Assests: cooperative, motivated, good support system, cognitively intact , good interpersonal skills Patient Liabilities: medical problems, visual impairment - Milieu Protocol Maintain good personal hygiene: daily Encourage regular showers, daily Assist patient to perform ADL's, every shift Remind patient to perform daily oral care Conduct patient checks and document Observation sheet: 1:1 Maintain personal safety: daily Educate patient to report safety concerns to staff, daily Monitor environment for contraband/sharps Medication safety: Monitor for expected outcome, potential side effects: daily, Assess barriers to learning: daily, Assess readiness for medication education: daily Family Contact Family involvement: Family/SO is involved Family contact: Telephone contact initiated by staff Family contact name: Aileen - Goals for Treatment Patient goals for treatment: Help with my sleep and anxiety Patient's family/SO goals for treatment: Help my mom with her sleep and nxiety issues
[2018-06-01 07:48] LABS: BLOOD UREA NITROGEN 25 mg/dL (7-21); CALCIUM 9.1 mg/dL (8.4-10.5); GFR AFRICAN-AMERICAN > 60; GFR NON-AFRICAN AMERICAN 52; HDL CHOLESTEROL 51 mg/dL (29-60)
[2018-06-01 07:58] LABS: LDL CHOLESTEROL 76 mg/dL (0-129)
[2018-06-01] MEDS: Metoprolol Succinate 50 mg XL Tab PO SCH (09:29)
[2018-06-01] MEDS: Levothyroxine 25 MCG TAB PO SCH (09:31)
[2018-06-01] MEDS: IPRATROPIUM BR NS SCH ×2 (09:37→17:50)
[2018-06-01] MEDS: LIDOCAINE TD SCH (09:37)
[2018-06-01] MEDS: FLOVENT INH SCH ×2 (09:38→17:48)
[2018-06-01] MEDS: Fluticasone Nasal 50 mcg/Spray NS SCH ×2 (09:38→17:50)
--- NOTE | 2018-06-01 14:29 | PCM.URO ---
Urology Progress Note - Subjective Abdominal Pain: Yes - Objective Lab Studies: Reviewed (plans : insert a new rios) Lab Results Last 24 Hours: Laboratory Results - last 24 hr 06/01/18 06/01/18 07:00 07:00 Sodium 140 Potassium 4.1 Chloride 106 Carbon Dioxide 26 Anion Gap 12 BUN 25 H Creatinine 1.0 Est GFR ( Amer) > 60 Est GFR (Non-Af Amer) 52 Random Glucose 93 Hemoglobin A1c 5.9 Calcium 9.1 Triglycerides 120 Cholesterol 161 LDL Cholesterol Direct 76 HDL Cholesterol 51 Vital Signs: Vital Signs - 24 hr 05/31/18 06/01/18 06/01/18 19:14 01:01 07:42 Temperature 97.9 F Pulse Rate 77 71 Respiratory 18 18 20 Rate Blood Pressure 123/56 L 166/58 H O2 Sat by Pulse 97 Oximetry 06/01/18 06/01/18 06/01/18 09:29 09:31 09:39 Temperature Pulse Rate 71 71 71 Respiratory Rate Blood Pressure 166/78 H 166/58 H 166/58 H O2 Sat by Pulse Oximetry
--- NOTE | 2018-06-02 01:38 | CON ---
DATE: 06/01/2018 MEDICAL CONSULT HISTORY OF PRESENT ILLNESS: An 87-year-old female, admitted to the [facility] under the care of Dr. Amari Cardenas with a history of anxiety, emotional distress. PAST MEDICAL HISTORY: The patient has a past medical history of stroke with left-sided weakness, peripheral vascular disease, arteriosclerotic heart disease, hyponatremia, [id number] diabetes mellitus, urinary tract infection, indwelling Peraza catheter, urinary tract infections, COPD. ALLERGIES: THE PATIENT HAS A HISTORY OF ALLERGY TO AMPICILLIN AND NEXIUM. MEDICATIONS: Active medications consist of Ambien 5 mg at bedtime, Eliquis 2.5 mg b.i.d., Flonase b.i.d., Klonopin 0.5 mg at bedtime, Norvasc 5 mg daily, Risperdal 0.25 mg at bedtime and 0.25 mg every 4 hours p.r.n., Synthroid 25 mcg daily, metoprolol succinate 50 mg daily, Tylenol 1 tab every 6 p.r.n. and Zestril 10 mg daily. Home medications consist of Eliquis 2.5 mg b.i.d., Flovent 0.22 mg b.i.d., Avapro 300 mg daily, Synthroid 25 mcg daily, Zestril 10 mg daily, Toprol 50 mg daily, omeprazole 40 mg daily, Pravachol 40 mg daily, Risperdal one tab p.o. at bedtime, Spiriva 18 mcg daily, Norvasc 5 mg daily and Klonopin 1 tab p.o. at bedtime. SOCIAL HISTORY: She is a nonsmoker, nondrinker, non drug user. REVIEW OF SYSTEMS: Ten systems are reviewed. Pertinent findings as noted on the exam. PHYSICAL EXAMINATION: VITAL SIGNS: Her temp is 97.9 rectally, her pulse is 71, her blood pressure is 166/58, respiratory rate is 18. GENERAL: She is alert, oriented x3. She is crying, emotional and upset. NECK: Supple. LUNGS: Show diminished breath sounds at the bases. HEART: An S1 and S2 rhythm. ABDOMEN: Soft, scaphoid. Positive bowel sounds. EXTREMITIES: Show no evidence of edema. EKG shows a sinus rhythm with a right bundle-branch block, anterior infarct, age indeterminate. Chest x-ray is reported showing no active disease. LABORATORY DATA: WBC 5.8, RBC 3.96, hemoglobin 11.3, hematocrit 34.6, platelets count is 266. Chemistry shows sodium 143, potassium 4.4, chloride 106, CO2 of 27, BUN of 28, creatinine of 1.1, random blood sugar is 30, calcium is 9.3, hemoglobin A1c is 5.9, LFTs are normal. Albumin is 3.6. Cholesterol is 161, triglycerides 120, HDL is 51. Urinalysis shows moderate leukocyte esterase, too numerous to cough wbc's. Toxicology screen: Salicylates were less than 1, Tylenol was less than 10. Alcohol was less than 10. Al the rest were negative. Microbiological study of urine culture drawn in the emergency room. Peraza was reportedly changed in the emergency room. There are greater than 100,000 gram-negative rods in the urine. ASSESSMENT: I have discussed the clinical setting with the patient's family and with Dr. Cardenas and the staff on the psychiatric floor and requested a Urology consult and a Neurology consult. I will also request in Infectious Disease consult. We will check the patient's labs. Family has been requested to bring certain medications from home. We will check her thyroid function test. We will request a neurology evaluation. Follow the patient clinically. Nasreen Mesa MD MTDRobert
[2018-06-02] MEDS ORDERED: [UNRECOGNIZED DRUG - OTHER] TOP PRN (06:00)
[2018-06-02 07:01] VITALS: BP 128/54; PULSE 62; RESP 18; TEMP 97.5
[2018-06-02] MEDS ORDERED: Pantoprazole 40 mg EC Tab PO SCH (07:30)
[2018-06-02 07:35] LABS: BASO # 0.03 K/mm3 (0.0-2.0); BASO % 0.4 % (0.0-3.0); EOS # 0.2 (0.0-0.7); EOS % 3.2 % (1.5-5.0); GRAN # 5.3 (1.4-6.5); GRAN % 72.7 % (50.0-68.0); HEMOGLOBIN 11.9 g/dL (12.0-16.0); LYMPH # 1.2 (1.2-3.4); LYMPH % 16.8 % (22.0-35.0); MEAN CELL VOLUME 87.6 fl (80.0-105.0); MEAN CORPUSCULAR HEMOGLOBIN 28.3 pg (25.0-35.0); MEAN CORPUSCULAR HGB CONC 32.3 g/dl (31.0-37.0); MEAN PLATELET VOLUME 10.1 fl (7.0-11.0); MONO # 0.5 (0.1-0.6); MONO % 6.9 % (1.0-6.0); RBC 4.2 10^6/uL (3.5-6.1); RED CELL DISTRIBUTION WIDTH 15.6 % (11.5-14.5); WHITE BLOOD COUNT 7.3 10^3/ul (4.5-11.0)
[2018-06-02 07:51] LABS: BLOOD UREA NITROGEN 28 mg/dL (7-21); CALCIUM 9.6 mg/dL (8.4-10.5); GFR AFRICAN-AMERICAN > 60; GFR NON-AFRICAN AMERICAN 52
[2018-06-02] MEDS ORDERED: OMEPRAZOLE 20 MG PO SCH (08:00)
[2018-06-02] MEDS ORDERED: Home Med 1 UNIT PO SCH ×2 (08:00→17:00)
[2018-06-02] MEDS ORDERED: levoFLOXacin 500 MG TAB PO SCH (08:00)
[2018-06-02] MEDS ORDERED: PRAVASTATIN 20 MG PO SCH (08:00)
--- NOTE | 2018-06-02 08:09 | HP ---
DATE OF EXAM: 06/01/2018 HISTORY OF PRESENT ILLNESS: The patient is an 87-year-old white female who has exhibited severe behavioral disturbance that has become increasingly problematic since her having suffered a cerebrovascular accident this past December such that she has been unmanageable at home because of her incessant anxiety, mood lability, and dependence. The patient was initially seen by me in her home on 05/14/2018, and I have had constant contact with her two daughters, most frequently her daughter, Ngoc. The patient has been noticed had been for 58 years and her in 2006. It was described as having been a good marriage. He had suffered from diabetes and had been a heavy smoker and had heart disease. He had been 80 years old at the time of his demise. Ms. Stoll was "numb" for a while, with her unable to recall the duration of such grief. He had worked as a presser in a [employer] company in [place]. The couple had three children, Consuelo, age 66, who lives in [place], [place]. She is reported to be in good health. She is , has two children and two grandchildren. A son, Pritesh, age 65, resides at [place], is , has one son and has diabetes 2. The daughter most actively involved in her mother's upkeep is the youngest daughter, Ngoc, age 60, who lives in [place]. She had a heart ablation. She is and without children. Ms. Stoll has described her children as being extremely focused and good to her. The patient was born in [place], lived in [place], at some time bought a house in [place], she was then transferred to [place]. She is a high school graduate (having gotten a GED). She is the oldest of her parents' five children. 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 She retired in 1992 with a "so parachute." She then had done volunteer work subsequent to her residential. She appears to have strong Mosque affiliations, having worked as a volunteer in several of their endeavors. Her mother of a heart attack at age 57. She had been born in [place]. The patient grieved over her "she was my mother." Her father of a heart attack at age 72. Her father was an alcoholic who could be physically and emotionally argumentative. She observed "he favored me." "I was his little girl;" with the patient having been the oldest of her parents' five children. She had a sister, Kaleb, who three years ago of a stroke at age 84. Her reaction to this loss as "she was my kid sister" with they have been gotten along. She had a brother, Luis, who of a heart attack 10 years ago. He had been a complete coil winding supervisor than a mental health counselor man. She found his demise to have been "unbelievable." He subsequently became the head of Public Safety for the [facility]. She indicated this was the "largest she ever attended." She has a sister, Guilherme, age 80, who lives in [place], and who has had both a hip and knee replacement and a sister, Yara, age 75, who was reported to be in good health and lives in [facility]). She indicated that her brother had a alcohol problem briefly, but "gave it up." With regard to her familial psychiatric history, she indicated that she had an aunt who was a "kind of slow" and had been hospitalized at [facility] for a period of time. She denied any other familial psychiatric history. With regard to her medical history, she indicated that she had a goiter 60 years ago and was put on L-thyroxine. She is under the care of Dr. Mesa. She has had the assistance presently of visiting nursing from [facility]. She had a tonsillectomy at age 17, and had a benign tumor of her breast removed 50 years ago. She has had a history of hypertension for which she has been on metoprolol and Norvasc in the past. She has had a history of COPD and is under the care of Dr. Cole. For this, she takes Flovent, Ventolin, Eliquis, omeprazole for GERD, pravastatin 20 mg since her CVA, aspirin 81 mg, lisinopril 5 mg, trazodone 50 mg for osteoarthritic knee and ankle, which she takes periodically. She takes Cavilon and L-thyroxine and Xanax 0.25 mg (one-half tablet in the morning). This dosage has been adjusted recently. It has been noted that she has become increasingly anxious since her CVA. Also her hearing aid has been "acting up" and she had to go to [facility] for an adjustment of this, which causes much anxiety. She noted also the right after she suffered the CVA, her daughter had been involved in a motor vehicle accident and had to wear a neck collar, but it is okay. The patient indicated that after she suffered her CVA, she had left facial asymmetry, she could move her left arm and left leg. She had been going for physical therapy, which she indicated helped about 40%. She now has visiting nurse helping her two times a week. She has been involved at the [facility], having been called by Dr. Mesa. She stated that after her CVA, she had been hospitalized at [facility] for 4-5 days and then at [facility] for 3-4 weeks and then any [place] until 04/12/2018. When I had evaluated, she was alert, oriented to three spheres, anxious, had occasional difficulty in falling asleep, had periods when she was short of breath when she was anxious, she was having crying episodes, she had a fear of dying. She was not suicidal. She was able to recognize she was depressed. She denied auditory or visual hallucinations. She indicated that her appetite had decreased and she lost about 30 pounds since her stroke. She observed that her concentration had decreased and she had trouble concentrating at times. She noted that she was getting up early. Her daughter observed that she was difficult for her aids to manage because she was staying up at night and keeping them up and wanting her daughter to be with her (which she cannot always do). She was attending physical therapy Friday, Friday, and Friday with her aid. Children were running "in-and-out" trying to also manage their own lives or families. Prior to this, the patient had been active, had been driving, had been traveling with friends. She had been taking Tylenol PM for sleep or Xanax to help her relax or melatonin. It was noted that she had a recent UTI after her stroke. She is given an initial diagnosis of anxiety disorder, NOS, status post CVA. I had initially started the patient on Klonopin 0.5 mg one-half tablet at bedtime. It was noted that she had a decreased sleep and decreased appetite at that time. Her Klonopin was subsequently increased and when this did not help, she was also started on Risperdal. Despite these, patient's condition has become progressively worse with increased anxiety, fear, demandingness, tearfulness, and other depression. Her CBC and differential showed low hemoglobin at 11.3, hematocrit 34.3, monocytes were elevated at 6.9, granulocyte percent elevated at 72.6. Drug screen negative. Urinalysis shows a trace blood, moderate leukocyte esterase. Biochemical profile showed a slightly elevated BUN of 25, glucose 93 today. The plan will be to stabilize the patient so as to be able to send her home with a visiting nurse, situation arranged again. The case has been reviewed with nursing and with Dr. Mesa. Amari Cardenas MD/ PhD
[2018-06-02] MEDS: Levothyroxine 25 MCG TAB PO SCH (09:22)
[2018-06-02] MEDS: Metoprolol Succinate 50 mg XL Tab PO SCH (09:22)
[2018-06-02] MEDS: Fluticasone Nasal 50 mcg/Spray NS SCH (09:24)
[2018-06-02] MEDS: FLOVENT INH SCH (09:24)
[2018-06-02] MEDS: IPRATROPIUM BR NS SCH (09:24)
[2018-06-02] MEDS: LIDOCAINE TD SCH (09:25)
[2018-06-02] MEDS: Cefpodoxime (Vantin) 200 mg Tab PO STA ×2 (11:19→11:20)
--- NOTE | 2018-06-02 16:54 | CON ---
DATE: 06/02/2018 HISTORY OF PRESENT ILLNESS: This is an 87-year-old white female with past medical history of stroke with residual weakness of the left side and peripheral vascular disease, atherosclerotic heart disease, hyponatremia, diabetes, was admitted with anxiety and emotional distress, and called to evaluate and clear her for discharge. I requested physical therapy for the left-sided weakness may be at home. ALLERGIES: AMPICILLIN AND NEXIUM. SOCIAL HISTORY: Does not smoke, does not drink. REVIEW OF SYSTEMS: A 10-point review of systems was negative except weakness of the left side secondary to stroke. PHYSICAL EXAMINATION: VITAL SIGNS: Blood pressure 165/58. HEENT: Normocephalic, atraumatic. NECK: Supple. NEUROLOGIC: Awake and oriented to self. Cranial nerves II through XII were tested. Pupils are reactive. Spontaneous movement of the right side noted and weakness of the left side residual from the previous stroke. The patient is not ambulating at home. Cerebellar, gait deferred. IMPRESSION: Right hemispheric stroke with residual weakness of the left side, anxiety, and depression. Do the physical therapy at home and we will follow up. Martin Quinones MD
[2018-06-02] MEDS ORDERED: LIDOCAINE TOP SCH (22:00)
--- NOTE | 2018-06-03 01:16 | CON ---
DATE: 06/02/2018 Patient is seen earlier this morning. CHIEF COMPLAINT: Positive gram-negative luna in the urine x1 day duration. HISTORY OF PRESENT ILLNESS: This is an 87-year-old female who was seen earlier this morning in the psychiatric floor, who was admitted with change of behavior, history of coronary artery disease, hyperlipidemia, cerebrovascular accident, urinary tract infection, chronic obstructive lung disease, chronic sinusitis, hypertension, and anxiety and patient with deafness; admitted to the psychiatric floor with diagnosis of anxiety and questionable change of mental status and Infectious Disease consultation requested. Patient states that in the emergency room, her [place] catheter was changed and urinalysis and urine cultures were sent. She denies any fevers and chills. She does have a chronic [place]aza catheter. REVIEW OF SYSTEMS: A 12-point review of systems . PAST MEDICAL HISTORY: Significant for coronary artery disease, cerebrovascular accident, urinary tract infection, chronic obstructive lung disease, chronic sinusitis, hypertension, anxiety, and deafness. PAST SURGICAL HISTORY: Significant for thyroidectomy. ALLERGIES: PATIENT IS ALLERGIC TO AMPICILLIN. SHE STATES SHE GETS DIARRHEA, NO REAL ALLERGY. PHYSICAL EXAMINATION: VITAL SIGNS: Patient's temperature is 97, blood pressure is 120/50, respiratory rate of 18, heart rate of 64. HEENT: Examination of HEENT is unremarkable. NECK: Supple. LUNGS: Have decreased breath sounds. HEART: Normal S1 and S2. ABDOMEN: Soft, nontender. No rebound or guarding. LABORATORY DATA: Laboratory examination reveals the patient has a urine culture, which has Escherichia coli, relatively sensitive organism, sensitive to ceftriaxone, resistant to ampicillin she is allergic to, but not a true allergy. The patient's white count is 5.8, hemoglobin of 11, platelets of 266. Chemistries reveal the patient's BUN of 28, creatinine of 1, and a urinalysis reveals [id number]-count wbc's, a few bacteria, leukocyte esterase moderate, nitrites are negative. Microbiology as stated. ASSESSMENT AND PLAN: This is an 87 years old with Escherichia coli urinary tract infection, may or may not be responsible for questionable anxiety and change in mental status. We will give a short course of p.o. Vantin, adjusted for the renal insufficiency and as discussed with Dr. Price, 3 to 5 days short course. The patient's allergy to ampicillin is not a true allergy. We will follow with you. Danie Angel MD
--- NOTE | 2018-06-03 09:45 | PN ---
DATE: 06/03/2018 SUBJECTIVE: An 87-year-old female sitting in the dayroom with the aide. Staff states that the patient had a quiet night and is feeling okay. PHYSICAL EXAMINATION: VITAL SIGNS: Temperature is 97.5,her blood pressure is 128/54, pulse is 62, respiratory rate is 18. GENERAL: She is alert and oriented x3. LUNGS: Clear. HEART: S1, S2. ABDOMEN: Soft. Positive bowel sounds. EXTREMITIES: Shows no evidence of edema. There is left-sided weakness, status post stroke. LABORATORY DATA: Shows WBC of 7.3, RBC of 4.2, hemoglobin 11.9, hematocrit 36.8, platelet count 243. Chemistry shows sodium 140, potassium 4.4, chloride 104, CO2 24, BUN is 28, creatinine is 1, calcium is 9.6. CURRENT MEDICATIONS: Consist of Ambien 5 mg at bedtime, Ecotrin 81 mg daily, Eliquis 2.5 mg b.i.d., Flonase b.i.d. She is on Norvasc 5 mg daily, Pravachol 40 mg daily, omeprazole 40 mg daily, Toprol-XL 50 mg daily, Zestril 10 mg daily, Synthroid 25 mcg daily, Avapro 300 mg daily, Flovent inhaler. She has been placed on Klonopin 0.5 mg at bedtime, Lipitor 10 mg daily, Risperdal 0.25 mg every 4 hours p.r.n. and 0.25 mg at bedtime by Dr. Cardenas. She has been seen by Infectious Disease. She has urinary tract infection with an Escherichia coli. Recommendation is to treat as an outpatient with Vantin 200 mg b.i.d. for 3 days. She was seen by Neurology, status post stroke. Recommend home Pt. She has also been seen by Urology, Dr. Modi. Family is aware of her clinical state, plan of care and treatment. They wish to take the patient home. She has been cleared for discharge and will be followed up as an outpatient. Nasreen Mesa MD
== END 2018-06-02 15:52 | disposition home or self-care (01) | DRG 880 ==
LOC: ED 12:56 → ERH 17:06 → PSYC 20:10
PROVIDERS: ADMIT Psychiatry & Neurology Addiction Medicine; ATTEND Psychiatry & Neurology Addiction Medicine
DX: F41.9 Anxiety disorder, unspecified (principal); N39.0 Urinary tract infection, site not specified; I69.354 Hemiplegia and hemiparesis following cerebral infarction affecting left non-dominant side; F32.89 Other specified depressive episodes; F91.9 Conduct disorder, unspecified; B96.20 Unspecified Escherichia coli [E. coli] as the cause of diseases classified elsewhere; E11.51 Type 2 diabetes mellitus with diabetic peripheral angiopathy without gangrene; E78.5 Hyperlipidemia, unspecified; E89.0 Postprocedural hypothyroidism; H91.90 Unspecified hearing loss, unspecified ear; I10 Essential (primary) hypertension; I25.10 Atherosclerotic heart disease of native coronary artery without angina pectoris; J32.9 Chronic sinusitis, unspecified; J44.9 Chronic obstructive pulmonary disease, unspecified; K21.9 Gastro-esophageal reflux disease without esophagitis; M19.90 Unspecified osteoarthritis, unspecified site; N28.9 Disorder of kidney and ureter, unspecified; R40.2412 Glasgow coma scale score 13-15, at arrival to emergency department; Z79.01 Long term (current) use of anticoagulants; Z79.899 Other long term (current) drug therapy; Z81.1 Family history of alcohol abuse and dependence; Z82.49 Family history of ischemic heart disease and other diseases of the circulatory system; Z88.8 Allergy status to other drugs, medicaments and biological substances; Z83.3 Family history of diabetes mellitus

== ENCOUNTER 2018-07-03 12:50 | Emergency (ER) | payer MEDICARE, OTHER ==
[2018-07-03 12:56] VITALS: RESP 18; TEMP 97.9; O2SAT 100; BMI 30.2
--- NOTE | 2018-07-03 14:03 | ED PDOC ---
Arrival/HPI - General Chief Complaint: GI Problem Time Seen by Provider: 07/03/18 13:11 Historian: Patient - History of Present Illness Narrative History of Present Illness (Text): 07/03/18 14:00 87 year old female, with a past medical history that includes CAD, hypothyroidism, asthma, recurrent UTI, and CVA presents to the emergency department with constipation, for 1 week. Patient states she came in for evaluation after being constipated for a week, sent by PMD. Patient denies any fever, chills, headache, dizziness, chest pain, shortness of breath, cough, abdominal pain, nausea, vomiting, diarrhea, back pain, neck pain, or any other complaint. Time/Duration: 1 week Symptom Onset: Gradual Symptom Course: Unchanged Activities at Onset: Light Past Medical History - Provider Review Nursing Documentation Reviewed: Yes - Past History Past History: No Previous - Infectious Disease Hx of Infectious Diseases: None - Tetanus Immunization Tetanus Immunization: Unknown - Cardiac Hx Cardiac Disorders: Yes Hx Hypertension: Yes - Pulmonary Hx Respiratory Disorders: Yes Hx Chronic Obstructive Pulmonary Disease (COPD): Yes - Neurological HX Cerebrovascular Accident: Yes (with L sided weakness) - HEENT Hx HEENT Disorder: Yes (glasses) Hx Deafness: (hearing loss) - Renal Hx Renal Disorder: No - Endocrine/Metabolic Hx Endocrine Disorders: No Hx Diabetes Mellitus Type 2: (borderline) - Hematological/Oncological Hx Blood Disorders: Yes Hx Shingles: Yes - Integumentary Hx Dermatological Disorder: Yes Other/Comment: 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 - Musculoskeletal/Rheumatological Hx Musculoskeletal Disorders: Yes Hx Arthritis: Yes - Gastrointestinal Hx Gastrointestinal Disorders: No - Genitourinary/Gynecological Other/Comment: +urinary catheter after stroke - Psychiatric Hx Anxiety: Yes Hx Substance Use: No - Past Surgical History Past Surgical History: Unable to Obtain - Surgical History Hx Cardiac Catheterization: Yes Hx Thyroidectomy: Yes Hx Tonsillectomy: Yes - Anesthesia Hx Anesthesia: Yes Hx Anesthesia Reactions: No Hx Malignant Hyperthermia: No - Suicidal Assessment Feels Threatened In Home Enviroment: No Family/Social History - Physician Review Nursing Documentation Reviewed: Yes Family/Social History: No Known Family HX Smoking Status: Former Smoker Hx Alcohol Use: Yes (occasionally) Hx Substance Use: No Hx Substance Use Treatment: No Allergies/Home Meds Allergies/Adverse Reactions: Allergies ampicillin Allergy (Verified 07/03/18 13:30) RASH esomeprazole magnesium [From Nexium] Allergy (Verified 07/03/18 13:30) RASH Home Medications: Home Meds Medication Instructions Recorded Confirmed Irbesartan [Avapro] 300 mg PO DAILY 02/18/16 05/31/18 Metoprolol Succinate XL [Toprol XL] 50 mg PO DAILY 02/18/16 05/31/18 Fluticasone Propionate [Flovent 0.22 mg IH BID 08/22/16 05/31/18 Hfa] Tiotropium [Spiriva] 18 mcg IH DAILY 08/22/16 05/31/18 Apixaban [Eliquis] 2.5 mg PO BID 05/09/18 05/31/18 Levothyroxine [Synthroid] 25 mcg PO DAILY 05/09/18 05/31/18 Lisinopril [Zestril] 10 mg PO DAILY 05/09/18 05/31/18 Omeprazole 40 mg PO DAILY 05/09/18 05/31/18 Pravastatin Sodium [Pravachol] 40 mg PO DAILY 05/09/18 05/31/18 amLODIPine [Norvasc] 5 mg PO DAILY 05/09/18 05/31/18 Risperidone [Risperdal] 1 tab PO HS 05/31/18 05/31/18 clonazePAM [Klonopin] 1 tab PO HS 05/31/18 05/31/18 Review of Systems - Physician Review All systems were reviewed & negative as marked: Yes - Review of Systems Constitutional: Normal. absent: Fevers, Night Sweats Eyes: Normal ENT: Normal Respiratory: Normal. absent: SOB, Cough Cardiovascular: Normal. absent: Chest Pain Gastrointestinal: Constipation. absent: Abdominal Pain, Diarrhea, Nausea, Vomiting Genitourinary Female: Normal Musculoskeletal: Normal. absent: Back Pain, Neck Pain Skin: Normal Neurological: Normal. absent: Headache, Dizziness Endocrine: Normal Hemo/Lymphatic: Normal Psychiatric: Normal Physical Exam Vital Signs Reviewed: Yes Vital Signs Temp Pulse Resp BP Pulse Ox 07/03/18 15:55 65 18 133/65 100 07/03/18 13:20 97.9 F 68 18 136/67 100 07/03/18 12:55 97.9 F 68 18 136/67 100 Temperature: Afebrile Blood Pressure: Normal Pulse: Regular Respiratory Rate: Normal Appearance: Positive for: Well-Appearing, Non-Toxic, Comfortable Pain Distress: None Mental Status: Positive for: Alert and Oriented X 3 - Systems Exam Head: Present: Atraumatic, Normocephalic Pupils: Present: PERRL Extroacular Muscles: Present: EOMI Conjunctiva: Present: Normal Mouth: Present: Moist Mucous Membranes Neck: Present: Normal Range of Motion Respiratory/Chest: Present: Clear to Auscultation, Good Air Exchange. No: Respiratory Distress, Accessory Muscle Use Cardiovascular: Present: Regular Rate and Rhythm, Normal S1, S2. No: Murmurs Abdomen: No: Tenderness, Distention, Peritoneal Signs Rectal: Present: Other (large volume of feces in diaper) Back: Present: Normal Inspection Upper Extremity: Present: Normal Inspection. No: Cyanosis, Edema Lower Extremity: Present: Normal Inspection. No: Edema Neurological: Present: GCS=15, CN II-XII Intact, Speech Normal Skin: Present: Warm, Dry, Normal Color. No: Rashes Psychiatric: Present: Alert, Oriented x 3, Normal Insight, Normal Concentration Medical Decision Making ED Course and Treatment: 07/03/18 14:00 Impression: 87 year old female, presents to the emergency department with constipation. Plan: -- Reassess and disposition Prior Visits: Notes and results from previous visits were reviewed. Progress Notes: 07/03/18 16:13 pt upon arrival has large bm in er. seen in er by dr mesa. labs reviewd. dr mesa discussed wtih renal dr ahmadi. pt declines any ed imaging, requests dc home and outpt managment. pt advised fluid restriction. pt also requests rios change. updated dr patel. - Lab Interpretations Lab Results: 07/03/18 13:55 07/03/18 13:55 Lab Results 07/03/18 14:50: Urine Color Yellow, Urine Appearance Clear, Urine pH 7.0, Ur Specific [place] <= 1.005, Urine Protein Negative, Urine Glucose (UA) Negative, Urine Ketones Negative, Urine Blood Small H, Urine Nitrate Negative, Urine Bilirubin Negative, Urine Urobilinogen 0.2, Ur Leukocyte Esterase Large H, Urine RBC 5 - 10, Urine WBC 25 - 30, Ur Epithelial Cells 6 - 8, Amorphous Sediment Few, Urine Bacteria Many, Urine Other Uyeast 07/03/18 13:55: Sodium 127 L, Potassium 5.2 H, Chloride 91 L, Carbon Dioxide 27 , Anion Gap 14, BUN 20, Creatinine 0.9, Est GFR ( Amer) > 60, Est GFR ( Non-Af Amer) 59, Random Glucose 116 H, Calcium 8.8, Total Bilirubin 0.3, AST 20 , ALT 21, Alkaline Phosphatase 69, Total Protein 6.5, Albumin 3.6, Globulin 2.9 , Albumin/Globulin Ratio 1.2, Lipase 121 07/03/18 13:55: PT 14.6 H, INR 1.27, APTT 32.8 07/03/18 13:55: WBC 6.8, RBC 3.77, Hgb 10.8 L, Hct 31.7 L, MCV 84.1 D, MCH 28.6 , MCHC 34.1, RDW 13.9, Plt Count 330, MPV 9.6, Gran % 79.7 H, Lymph % (Auto) 12.8 L, [place] % (Auto) 5.0, Eos % (Auto) 2.2, Baso % (Auto) 0.3, Gran # 5.44, Lymph # (Auto) 0.9 L, [place] # (Auto) 0.3, Eos # (Auto) 0.2, Baso # (Auto) 0.02 - Scribe Statement The provider has reviewed the documentation as recorded by the Heather Collins Provider Scribe Attestation: All medical record entries made by the Scribailyn were at my direction and personally dictated by me. I have reviewed the chart and agree that the record accurately reflects my personal performance of the history, physical exam, medical decision making, and the department course for this patient. I have also personally directed, reviewed, and agree with the discharge instructions and disposition. Disposition/Present on Arrival - Present on Arrival Any Indicators Present on Arrival: No History of DVT/PE: No History of Uncontrolled Diabetes: No Urinary Catheter: Yes History of Decub. Ulcer: No History Surgical Site Infection Following: None - Disposition Have Diagnosis and Disposition been Completed?: Yes Diagnosis: Hyponatremia, Rios catheter problem, Constipation Disposition: HOME/ ROUTINE Disposition Time: 03:00 Patient Problems: Current Active Problems Problem Status Onset Constipation Acute Rios catheter problem Acute Hyponatremia Acute Condition: STABLE Discharge Instructions (ExitCare): Constipation in Adults, Rios Catheter, Female, Hyponatremia (DC) Additional Instructions: follow up with your doctor. yo bello need repeat testing as an outpatient. return to er with worsening symptoms or concerns. Referrals: Nasreen Mesa MD [Primary Care Provider] - Follow up with primary Forms: [employer] ([place])
[2018-07-03 14:29] LABS: BASO # 0.02 K/mm3 (0.0-2.0); BASO % 0.3 % (0.0-3.0); EOS # 0.2 (0.0-0.7); EOS % 2.2 % (1.5-5.0); GRAN # 5.44 (1.4-6.5); GRAN % 79.7 % (50.0-68.0); HEMOGLOBIN 10.8 g/dL (12.0-16.0); LYMPH # 0.9 (1.2-3.4); LYMPH % 12.8 % (22.0-35.0); MEAN CELL VOLUME 84.1 fl (80.0-105.0); MEAN CORPUSCULAR HEMOGLOBIN 28.6 pg (25.0-35.0); MEAN CORPUSCULAR HGB CONC 34.1 g/dl (31.0-37.0); MEAN PLATELET VOLUME 9.6 fl (7.0-11.0); MONO # 0.3 (0.1-0.6); RBC 3.77 10^6/uL (3.5-6.1); RED CELL DISTRIBUTION WIDTH 13.9 % (11.5-14.5); WHITE BLOOD COUNT 6.8 10^3/ul (4.5-11.0)
[2018-07-03 14:40] LABS: INR 1.27; PARTIAL THROMBOPLASTIN TIME 32.8 Seconds (25.1-36.5); PROTHROMBIN TIME 14.6 SECONDS (9.4-12.5)
[2018-07-03 14:41] LABS: ALB/GLOB RATIO 1.2 (1.1-1.8); ALBUMIN 3.6 g/dL (3.0-4.8); ALT/SGPT 21 U/L (7-56); AST/SGOT 20 U/L (14-36); BLOOD UREA NITROGEN 20 mg/dL (7-21); CALCIUM 8.8 mg/dL (8.4-10.5); GFR AFRICAN-AMERICAN > 60; GFR NON-AFRICAN AMERICAN 59; LIPASE 121 U/L (23-300)
[2018-07-03 15:04] LABS: URINE APPEARANCE CLEAR (CLEAR); URINE BILIRUBIN NEGATIVE (NEGATIVE); URINE BLOOD SMALL (NEGATIVE); URINE COLOR YELLOW (YELLOW); URINE GLUCOSE (UA) NEGATIVE (NEGATIVE); URINE LEUKOCYTE ESTERASE LARGE Leu/uL (NEGATIVE); URINE PROTEIN NEGATIVE mg/dL (<30 mg/dL); URINE UROBILINOGEN 0.2 E.U./dL (<1 E.U./dL)
[2018-07-03 15:09] LABS: URINE AMORPHOUS SEDIMENT FEW; URINE BACTERIA MANY (NEG); URINE WBC 25 - 30 /hpf (0-6)
[2018-07-03 15:55] VITALS: BP 133/65; PULSE 65
== END 2018-07-03 16:21 | disposition home or self-care (01) ==
LOC: ED 12:50
DX: E87.1 Hypo-osmolality and hyponatremia (principal); K59.00 Constipation, unspecified; T83.9XXA Unspecified complication of genitourinary prosthetic device, implant and graft, initial encounter